=== PATIENT | female | born 1970 | race Caucasian/White ===

== ENCOUNTER 2019-03-16 15:25 | Emergency (ER) | payer OTHER, SELFPAY ==
--- NOTE | ~2019-03-16 | XR_ITS ---
EXAMINATION: XR ankle RT min 3V, XR foot RT 2V EXAM DATE: 03/16/2019 15:56 (accession [id number]), 03/16/2019 15:57 (accession [id number]) INDICATION: Initial encounter following injury, with pain of the right foot, ankle. TECHNIQUE: Right foot dorsoplantar, lateral projections obtained and reviewed. Right ankle frontal, lateral and oblique projections obtained and reviewed. There is no prior study for comparison. FINDINGS: Right metatarsal bones unremarkable. The right ankle mortise appears intact. There is mi ld right first metatarsophalangeal joint primary osteoarthritis. Possible tiny avulsion fracture off the cuboid bone dorsal lateral aspect, closed post traumatic find ing if real. This finding has been indicated, marked on the examination for review, clinical correlat ion. There is no subcutaneous gas. The soft tissue is unremarkable. There are no radiopaque fore ign bodies. IMPRESSION: Possible right cuboid avulsion fracture. Reviewed, dictated and finalized at location A. 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
[2019-03-16 15:29] VITALS: BP 136/69; PULSE 80; RESP 18; TEMP 37.5; O2SAT 100
--- NOTE | 2019-03-16 16:29 | ED.LOWEXIN ---
HPI - Extremity Injury (Lower) General Chief Complaint: Extremity Injury, Lower Stated Complaint: Foot injury Time Seen by Provider: 03/16/19 15:31 Source: patient Mode of arrival: wheelchair Limitations: no limitations History of Present Illness HPI Narrative: Patient presents with chief complaint of swelling to the lateral aspect of her right foot after tripping and inverting the ankle while walking out of her home. Patient denies prior ankle or foot fractures. Patient denies any other areas of impact or injury. Patient denies any chronic medical conditions or daily medications. Patient denies smoking, alcohol use or recreational drug use. Related Data Allergies Allergy/AdvReac Type Severity Reaction Status Date / Time No Known Allergies Allergy Unverified 09/13/12 17:04 Review of Systems Review of Systems: Narrative: CONSTITUTIONAL: Denies fever, chills, or sweats. EYES: Denies visual changes, redness, or discharge. ENT: Denies rhinorrhea, congestion, sore throat, or otalgia. CARDIOVASCULAR: Denies chest pain, palpitations, or edema. RESPIRATORY: Denies cough or dyspnea. GASTROINTESTINAL: Denies abdominal pain, nausea, vomiting, or diarrhea. GENITOURINARY: Denies dysuria or hematuria. SKIN: Denies rash or itching. MUSCULOSKELETAL: Reports right ankle pain and swelling NEUROLOGIC: Denies headache, numbness, dizziness, or weakness. PSYCHIATRIC: Denies anxiety or depression. Exam Narrative: Exam Narrative: GENERAL: Well-appearing, well-nourished, and in no acute distress. HEAD: Normocephalic, atraumatic. EYES: PERRLA and EOMI. ENT: Nares clear, no rhinorrhea or epistaxis. Mucous membranes moist. Oropharynx without tonsillar hypertrophy exudate or other lesions. Bilateral TMs pearly cotton nonbulging NECK: Supple. No adenopathy or masses. No carotid bruits or JVD CHEST: Clear to auscultation. No respiratory distress. No wheezes rales or rhonchi HEART: Regular rate and rhythm. No murmur heard. Normal peripheral pulses. ABDOMEN: Soft, nontender, nondistended, normal active bowel sounds. EXTREMITIES: Edema to the lateral aspect of right foot with ecchymosis. Range of motion intact without tenderness to the toes, ankle or proximal tibia and fibula. SKIN: Warm, dry, no rash. NEURO: No focal deficits. Alert and oriented x3. PSYCH: Normal mood and affect. Course Vital Signs Vital signs: Vital Signs Temperature 99.5 F 03/16/19 15:29 Pulse Rate 80 03/16/19 15:29 Respiratory Rate 18 03/16/19 15:29 Blood Pressure 136/69 03/16/19 15:29 Pulse Oximetry 100 03/16/19 15:29 Temperature 99.5 F 03/16/19 15:29 Pulse Rate 80 03/16/19 15:29 Respiratory Rate 18 03/16/19 15:29 Blood Pressure 136/69 03/16/19 15:29 Pulse Oximetry 100 03/16/19 15:29 MDM - Extremity Injury (Lower) MDM Narrative Medical decision making narrative: Patient has avulsion injury of cuboid. Patient given the option of Atilio wrap or postop shoe. Patient is agreeable to postop shoe and crutches. Informed patient of the need to elevate, ice, follow-up with orthopedics for further evaluation. Patient relies understanding agreement denies needing a work note. Patient is ready for discharge at this time. Differential Diagnosis Differential diagnosis: Likely ankle sprain and strain, fracture of femur, fracture of hip, puncture wound of foot, fracture of toe and ankle fracture Imaging Data Radiologist's impression: ITS Impressions Ankle X-Ray 03/16/19 15:58 IMPRESSION: Possible right cuboid avulsion fracture. Foot X-Ray 03/16/19 15:58 IMPRESSION: Possible right cuboid avulsion fracture. Discharge Plan Discharge Clinical Impression: Closed fracture cuboid Qualifiers: Encounter type: initial encounter Fracture alignment: displaced Laterality: right Qualified Code(s): S92.211A - Displaced fracture of cuboid bone of right foot, initial encounter for closed fracture Patient Disposition: Home, Se
== END 2019-03-16 16:40 | disposition home or self-care (01) ==
PROVIDERS: Emergency Provider Emergency Medicine; PCP Family Medicine Adolescent Medicine
DX: S92.211A Displaced fracture of cuboid bone of right foot, initial encounter for closed fracture (principal); X50.9XXA Other and unspecified overexertion or strenuous movements or postures, initial encounter
CPT/HCPCS: 73610; 73620; 99284

== ENCOUNTER 2019-11-06 15:48 | Emergency (ER) | payer OTHER, SELFPAY ==
--- NOTE | ~2019-11-06 | XR_ITS ---
EXAMINATION: XR wrist LT min 3V DATE: 11/06/2019 16:16 INDICATION: Left wrist pain, initial encounter TECHNIQUE: Posteroanterior, oblique, and lateral views of the left wrist were obtained. COMPARISON: None available FINDINGS: There is an acute, traumatic, closed, oblique intra-articular fracture at the medial base o f the fifth metacarpal. There is also a questionable fracture of the ulnar styloid. There is soft tis anaya swelling of the medial hand and wrist. No additional acute osseous findings are suspected. IMPRESSION: 1. Acute intra-articular fracture at the medial base of the fifth metacarpal. 2. Possible ulnar styloid fracture. Reviewed, dictated and finalized at location A.
--- NOTE | ~2019-11-06 | XR_ITS ---
EXAMINATION: XR elbow LT min 3V DATE: 11/06/2019 16:16 INDICATION: Left elbow pain TECHNIQUE: Anteroposterior, two oblique and lateral views of the left elbow were obtained. COMPARISON: None. FINDINGS: Alignment is normal. No fracture or joint effusion. Joint spaces are normal. There is poste rior soft tissue swelling of the elbow. IMPRESSION: 1. No acute osseous abnormality. Reviewed, dictated and finalized at location A.
--- NOTE | ~2019-11-06 | XR_ITS ---
EXAMINATION: XR shoulder LT min 2V INDICATION: Left shoulder pain TECHNIQUE: Four views of the left shoulder are submitted. COMPARISON: None FINDINGS: Normal alignment. No fracture. Glenohumeral and acromioclavicular joint spaces are normal. Soft tissues are unremarkable. IMPRESSION: 1. No acute osseous abnormality. Reviewed, dictated and finalized at location A.
[2019-11-06 15:51] VITALS: BP 130/69; PULSE 91; RESP 18; TEMP 36.8; O2SAT 99
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
[2019-11-06] MEDS: KETOROLAC (*BKC) 60 MG/2 ML VIAL IM (17:02)
[2019-11-06 18:05] VITALS: BP 123/78; PULSE 75; RESP 18; O2SAT 99
== END 2019-11-06 18:20 | disposition home or self-care (01) ==
PROVIDERS: Emergency Provider Family Medicine; PCP Family Medicine Adolescent Medicine
DX: S62.317A Displaced fracture of base of fifth metacarpal bone, left hand, initial encounter for closed fracture (principal); F90.9 Attention-deficit hyperactivity disorder, unspecified type; F31.9 Bipolar disorder, unspecified; V43.52XA Car driver injured in collision with other type car in traffic accident, initial encounter
CPT/HCPCS: 29125; 73030; 73080; 73110; 96372; 99284; J1885

== ENCOUNTER 2024-07-25 02:02 | Day surgery (SDC) | payer BC, SELFPAY ==
[2024-04-27 10:23] VITALS: BMI 23.0
--- OUTSIDE RECORDS SUMMARY | 2024-04-29 00:43 | XMS_ITS | Clinical Summary ---
Author Organization 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 Name Role Phone Unavailable Primary Care Provider Unavailabl e Social History Tobacco Use Types Packs/Day Years Used Date Smoking Tobacco: Never Assessed Comments Unknown Sex and Gender Information Value Date Recorded Sex Assigned at Not on file Legal Sex Female 7:52 PM CDT Gender Identity Not on file Sexual Orientation Not on file Plan of Treatment Health Maintenance Due Date Last Done Comments Cervical Cancer Screening Pa p Smear (Age 30 to 64) Every 3 Years 1968 Colorectal Cancer Screening Colonoscopy (10 Years) 1968 Annual Physical 08/25/1971 Hepatitis C 1986 DTaP, Tdap and Td Vaccines ( 1 - Tdap) 08/25/1987 Hepatitis B Vaccines (1 of 3 - 19+ 3-dose series) 08/25/1987 Cervical Cancer Screening Pa p with HPV Testing (Age 30 to 64) Every 5 Years 1998 Cervical Cancer Screening with HPV 1998 Mammogram Screening 2008 Zoster Vaccines (1 of 2) 2018 COVID-19 Vaccine (2023-2 5 season) 2023 Influenza Adult (#1) 2023 Meningococcal B Vaccine Aged Out No l onger eligible based on patient's age to complete this topic Meningococcal Vaccine Aged Out No naila alexandra eligible based on patient's age to complete this topic Pneumococcal Vaccine: Pediat rics (0 to 5 Years) and At-Risk Patients (6 to 64 Years) Aged Out No longer eligible b ased on patient's age to complete this topic RSV Immunizations Under 20 Months Aged Out No longer eligible based on patient's age to complete this topic
--- NOTE | 2024-04-29 09:56 | SUR.PREOP ---
Patient could not tolerate prep and needed to cancel procedure scheduled for today. Will reschedule with office and try a different prep. Patient cancelled for 04/29/2024.
[2024-07-13 11:56] VITALS: BMI 23.0
--- OUTSIDE RECORDS SUMMARY | 2024-07-25 02:04 | XMS_ITS | Clinical Summary ---
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
[2024-07-25 07:45] VITALS: BP 119/80; PULSE 88; RESP 18; TEMP 36.6; O2SAT 100; BMI 22.0
[2024-07-25] MEDS: LACTATED RINGERS 1,000 ML 150 ML IV CONT (07:54)
--- NOTE | 2024-07-25 07:58 | WPDANESEPPF ---
Anes - Initial Pre Proc Eval Procedure: Operation Date: 04/29/24 14:30 Proposed Procedures p Screening Colonoscopy - Bruce Batres MD Operation Date: 07/25/24 09:00 Proposed Procedures p Screening Colonoscopy - Bruce Batres MD Date/Time: 07/25/24 07:58 Surgeon: Bruce Batres MD Pre Op Diagnosis: Screening Patient Data Age: 53 Gender: F Height: 1.6 m Weight: 56.4 kg Last Vital Signs Temp 36.6 C 07/25/24 07:45 Pulse 88 07/25/24 07:45 Resp 18 07/25/24 07:45 BP 119/80 07/25/24 07:45 Pulse Ox 100 07/25/24 07:45 O2 Del Method Room Air 07/25/24 07:45 Allergies Allergy/AdvReac Type Severity Reaction Status Date / Time No Known Allergies Allergy Verified 07/25/24 07:43 Home Medications ?Medication ?Instructions ?Recorded ?Confirmed ?Type alpha lipoic acid 100 mg capsule 800 mg PO DAILY 08/14/22 07/25/24 History lactobacillus combination no.4 3 3,000 mmu cells PO DAILY 08/14/22 07/25/24 History billion cell capsule (Probiotic) albuterol sulfate 90 mcg/actuation 1 puff inhalation Q4H PRN 04/09/23 07/13/24 Rx aerosol inhaler shortness of breath or wheezing #6.7 grams montelukast 10 mg tablet 10 mg PO QHS #90 tabs 11/17/23 07/25/24 Rx valacyclovir 500 mg tablet 500 mg PO Q12H PRN outbreak 04/13/24 07/13/24 History mometasone 200 mcg/actuation HFA 2 puff inhalation BID #13 grams 04/19/24 07/13/24 Rx aerosol inhaler (Asmanex HFA) cholecalciferol (vitamin D3) 25 1,000 unit PO DAILY 04/27/24 07/25/24 History mcg (1,000 unit) tablet ferrous sulfate 27 mg iron tablet 27 mg PO DAILY 04/27/24 07/25/24 History soy isoflavone-black cohosh 1 cap PO DAILY 04/27/24 07/25/24 History root-magnolia bark 155 mg capsule (Estroven) sodium sul 1.479 gram-potas ch See Rx Instructions PO PER PKG DIR 04/29/24 07/25/24 Rx 0.188 gram-magnes sul 0.225 gram #24 tabs tablet (Sutab) oxcarbazepine 600 mg tablet 300 mg (1/2 x 600 mg) PO BID #30 05/19/24 07/25/24 Rx tabs dextroamphetamine-amphetamine 30 30 mg PO BID #60 tabs 06/09/24 07/25/24 Rx mg tablet atorvastatin 40 mg tablet See Rx Instructions .Route 07/11/24 07/25/24 Rx .COMPLEX #90 tabs sodium sul 1.479 gram-potas ch See Rx Instructions PO .COMPLEX 07/13/24 Rx 0.188 gram-magnes sul 0.225 gram #24 tabs tablet (Sutab) Patient hx anesthesia problems: none Family hx anesthesia problems: none Results Review: All pre-operative results and documents have been reviewed as part of the pre-operative evaluation. [facility] Past Medical History Medical History Bipolar disorder, unspecified Adult ADHD (attention deficit hyperactivity disorder) Generalized anxiety disorder Asthma Surgical History Surgical History History of breast biopsy History of section History of tonsillectomy Family History Family History Mother Alzheimer disease Hypothyroid Grandparent Alzheimer disease Lung cancer Heart disease Father Malignant neoplasm of prostate Social History Social History Smoking packs per day: 1 Smoking cigarettes per day: 20.0 Years smoked: 7 Smoking pack-years: 7.00 Smoking status: Former smoker Tobacco type: cigarettes Second hand tobacco smoke exposure: No Smoking end date: 02/09/93 Alcohol intake: never Substance use: never Substance use type: does not use Do You Feel Safe in your Home?: Yes Lack of Transportation: No Lack of Food: Never True Current Housing: I Have Housing Concerned About Future Housing: No Difficulty Paying Gas/Electric Bills: No Difficulty Paying for Meds: No Currently Unemployed: No Education: Associate Degree Difficulty w/ Childcare or Family Care: No Living arrangements: with family Occupation/Education: occupation Gender identity (if verbalized by the patient): Female Spiritual care concerns: No Agree to blood products: Yes Anes - Eval Final PreProcedure Day of Procedure 07/25/24 07:58 Patient weight: normal Heart: regular rate and rhythm Lungs: clear to auscultation Airway: Mallampati scale class 1 Neurological: alert and oriented Last oral intake: >/= 8 hours ASA classification: III Emergent: no Anesthetic plan: proceed Anesthesia type and monitoring: general GIVS and standard monitoring Results Review: All pre-operative results and documents have been reviewed as part of the pre-operative evaluation. Informed Consent: The patient's anesthetic plan and its attendant risks and benefits were discussed with the patient/family/POA. Questions were solicited and answers provided to the satisfaction of the patient/family/POA.
--- NOTE | 2024-07-25 08:31 | PM.HPGS ---
History of Present Illness History of Present Illness Consent: Risks, benefits, and alternatives have been discussed and questions answered. Patient agrees to proceed with procedure. Chief complaint: Screening Narrative: Peg Bryant is a 53 year old female here for first screening colonoscopy Review of Systems Review of Systems: All systems reviewed & are unremarkable except as noted in HPI and below PMFSH Past Medical History Medical History Bipolar disorder, unspecified Adult ADHD (attention deficit hyperactivity disorder) Generalized anxiety disorder Asthma Surgical History Surgical History History of breast biopsy History of section History of tonsillectomy Family History Family History Mother Alzheimer disease Hypothyroid Grandparent Alzheimer disease Lung cancer Heart disease Father Malignant neoplasm of prostate Social History Social History Smoking packs per day: 1 Smoking cigarettes per day: 20.0 Years smoked: 7 Smoking pack-years: 7.00 Smoking status: Former smoker Tobacco type: cigarettes Second hand tobacco smoke exposure: No Smoking end date: 02/09/93 Alcohol intake: never Substance use: never Substance use type: does not use Do You Feel Safe in your Home?: Yes Lack of Transportation: No Lack of Food: Never True Current Housing: I Have Housing Concerned About Future Housing: No Difficulty Paying Gas/Electric Bills: No Difficulty Paying for Meds: No Currently Unemployed: No Education: Associate Degree Difficulty w/ Childcare or Family Care: No Living arrangements: with family Occupation/Education: occupation Gender identity (if verbalized by the patient): Female Spiritual care concerns: No Agree to blood products: Yes Meds Home Medications and Allergies Home Medications ?Medication ?Instructions ?Recorded ?Confirmed ?Type alpha lipoic acid 100 mg capsule 800 mg PO DAILY 08/14/22 07/25/24 History lactobacillus combination no.4 3 3,000 mmu cells PO DAILY 08/14/22 07/25/24 History billion cell capsule (Probiotic) albuterol sulfate 90 mcg/actuation 1 puff inhalation Q4H PRN 04/09/23 07/13/24 Rx aerosol inhaler shortness of breath or wheezing #6.7 grams montelukast 10 mg tablet 10 mg PO QHS #90 tabs 11/17/23 07/25/24 Rx valacyclovir 500 mg tablet 500 mg PO Q12H PRN outbreak 04/13/24 07/13/24 History mometasone 200 mcg/actuation HFA 2 puff inhalation BID #13 grams 04/19/24 07/13/24 Rx aerosol inhaler (Asmanex HFA) cholecalciferol (vitamin D3) 25 1,000 unit PO DAILY 04/27/24 07/25/24 History mcg (1,000 unit) tablet ferrous sulfate 27 mg iron tablet 27 mg PO DAILY 04/27/24 07/25/24 History soy isoflavone-black cohosh 1 cap PO DAILY 04/27/24 07/25/24 History root-magnolia bark 155 mg capsule (Estroven) sodium sul 1.479 gram-potas ch See Rx Instructions PO PER PKG DIR 04/29/24 07/25/24 Rx 0.188 gram-magnes sul 0.225 gram #24 tabs tablet (Sutab) oxcarbazepine 600 mg tablet 300 mg (1/2 x 600 mg) PO BID #30 05/19/24 07/25/24 Rx tabs dextroamphetamine-amphetamine 30 30 mg PO BID #60 tabs 06/09/24 07/25/24 Rx mg tablet atorvastatin 40 mg tablet See Rx Instructions .Route 07/11/24 07/25/24 Rx .COMPLEX #90 tabs sodium sul 1.479 gram-potas ch See Rx Instructions PO .COMPLEX 07/13/24 Rx 0.188 gram-magnes sul 0.225 gram #24 tabs tablet (Sutab) Allergies Allergy/AdvReac Type Severity Reaction Status Date / Time No Known Allergies Allergy Verified 07/25/24 07:43 Vital Signs Vital Signs - 24 hr 07/25/24 07:45 Temperature 97.9 F Pulse Rate 88 Respiratory Rate 18 Blood Pressure 119/80 Pulse Oximetry 100 Oxygen Delivery Room Air Exam Const: General: comfortable and no acute distress HENMT: Face/Nose/Sinus: Normal nares present Eyes: General: appearance normal, both eyes and all related structures Neck: Neck: no JVD Resp: Auscultation: clear to auscultation bilaterally Cardio: Rate: regular rate Rhythm: regular rhythm GI: Inspection: non-distended GI Palp: Yes Soft to palpation Skin: General skin exam: normal color Neuro: General: gait normal Speech: normal speech Extrem: General: normal to inspection Psych: Mental Status: mental status grossly normal Assessment and Plan Assessment and plan (1) Colon cancer screening: Code(s): Z12.11 - Encounter for screening for malignant neoplasm of colon Status: Acute Assessment and Plan: colonoscopy
--- NOTE | 2024-07-25 08:49 | S_PTH ---
PATIENT: Peg Bryant LOC: [facility]#:[id number] AGE/SX: 53/F ROOM: RE07/25/[address]: Bruce Batres MD : 1970 BED: DIS: 07/25/2024 SPEC #: [id number] RECD: 07/25/24 10:50 STATUS: ANNA REQ #: [id number] MELL: 07/25/24 08:[address]: Bruce Batres DEPT: [facility] Surgical RECD BY: Yoana Monsivais ENTERED: 07/25/24 10:50 SP TYPE: Surgical OTHR DR: Sheri Porter, LUIS MIGUEL Tissues: A - Colon Polypectomy Procedures: Hematoxylin and Eosin Stain Gross and Microscopic Level 4
[2024-07-25 08:50] VITALS: BP 94/56; PULSE 76; RESP 20; O2SAT 100
[2024-07-25 09:00] VITALS: BP 115/89; PULSE 66; RESP 21; O2SAT 100
[2024-07-25 09:10] VITALS: BP 113/76; PULSE 62; RESP 18; O2SAT 100
== END 2024-07-25 09:19 | disposition home or self-care (01) ==
PROVIDERS: PCP Nurse Practitioner Family; Referring Provider Nurse Practitioner Family; Visit Provider Internal Medicine Gastroenterology
PROC: 0DJD8ZZ Inspection of Lower Intestinal Tract, Via Natural or Artificial Opening Endoscopic (ICD-10-PCS; CPT 45378; principal; 2024-07-25 09:00)
DX: Z12.11 Encounter for screening for malignant neoplasm of colon (principal); D12.3 Benign neoplasm of transverse colon; K63.5 Polyp of colon; K64.8 Other hemorrhoids; Z87.891 Personal history of nicotine dependence
CPT/HCPCS: 45385; 88305; J2704; J7120